=== PATIENT | female | born 1970 | race Two or more races ===

== ENCOUNTER → 2024-04-15 | Outpatient (CLI) | payer OTHER | END | disposition home or self-care (01) | LOC: Rad HDHVI 15:58 | PROVIDERS: ATTEND Internal Medicine Cardiovascular Disease | DX: R00.1 Bradycardia, unspecified (principal) | CPT/HCPCS: 93306 ==

== ENCOUNTER → 2024-04-22 | Outpatient (CLI) | payer OTHER ==
[~2024-04-22] VITALS: Ht 154.9 cm; Wt 79.8 kg
== END | disposition home or self-care (01) ==
LOC: Rad HDHVI 10:04
PROVIDERS: ATTEND Internal Medicine Cardiovascular Disease
DX: Z13.6 Encounter for screening for cardiovascular disorders (principal); R00.0 Tachycardia, unspecified; I10 Essential (primary) hypertension; Z82.49 Family history of ischemic heart disease and other diseases of the circulatory system
CPT/HCPCS: 78452; 93017; A9500; 96374